=== PATIENT | male | born 1960 | race Caucasian/White ===

== ENCOUNTER 2024-04-01 13:22 | Inpatient (IN) | payer OTHER ==
[2024-04-01 14:41] VITALS: BMI 30.9
[2024-04-01] MEDS ORDERED: MAG HYDROX/AL HYDROX/SIMETH 30 ML UNIT-DOSE CUP PO PRN (15:11)
[2024-04-01] MEDS ORDERED: BENZOCAINE/MENTHOL (CHLORASEPTIC ) LOZENGE MM PRN (15:11)
[2024-04-01] MEDS ORDERED: IBUPROFEN 400 MG TABLET (FP) PO PRN (15:11)
[2024-04-01] MEDS ORDERED: NALOXONE (NARCAN) HCL 4 MG/0.1 ML SPRAY NS PRN (15:11)
[2024-04-01] MEDS ORDERED: ACETAMINOPHEN 325 MG TABLET (FP) PO PRN (15:11)
[2024-04-01] MEDS ORDERED: guaiFENesin 600 MG TABLET.ER (FP) PO PRN (15:11)
[2024-04-01] MEDS ORDERED: NICOTINE POLACRILEX 2 MG LOZENGE BC PRN (15:11)
[2024-04-01] MEDS ORDERED: NALOXONE HCL 0.4 MG/ML VIAL IM PRN (15:11)
[2024-04-01] MEDS ORDERED: LOPERAMIDE HCL 2 MG CAPSULE PO PRN (15:11)
[2024-04-01] MEDS ORDERED: BENZONATATE 200 MG CAPSULE PO PRN (15:11)
[2024-04-01] MEDS: TUBERCULIN PPD 5 TU/0.1ML SYRINGE (IN PATIENT USE ONLY) ID ONE (17:53)
[2024-04-01] MEDS ORDERED: TUBERCULIN PPD 5 TU/0.1ML SYRINGE (IN PATIENT USE ONLY) ID ONE (19:12)
[2024-04-01 19:29] LABS: PH,URINE 5.5 (5.0-8.0); URINE APPEARANCE CLEAR; URINE BILIRUBIN NEGATIVE (NEGATIVE); URINE COLOR YELLOW; URINE GLUCOSE (UA) NEGATIVE (NEGATIVE); URINE KETONE TRACE (NEGATIVE); URINE LEUK ESTERASE NEGATIVE (NEGATIVE); URINE NITRITE NEGATIVE (NEGATIVE); URINE PROTEIN NEGATIVE (NEGATIVE)
[2024-04-01] MEDS: MELATONIN 5 MG TABLETS PO SCH (22:22)
[2024-04-01] MEDS: THIAMINE 100 MG TABLET PO SCH (22:22)
[2024-04-02] MEDS: hydrOXYzine PAMOATE 25 MG CAPSULE (FP) PO PRN (01:35)
[2024-04-02] MEDS: IBUPROFEN 600 MG TABLET (FP) PO PRN (06:01)
[2024-04-02] MEDS: methaDONE HCL 40 MG DISPERSABLE TABLET PO SCH (08:05)
[2024-04-02] MEDS: amLODIPine BESYLATE 5 MG TABLET (FP) PO SCH (09:29)
[2024-04-02] MEDS: PRENATAL VITAMINS W/ FOLIC ACID TABLET (FP) PO SCH (09:29)
[2024-04-02] MEDS: NICOTINE POLACRILEX 2 MG GUM BUC PRN (09:31)
[2024-04-02] MEDS: ARIPiprazole 10 MG TABLET PO SCH (10:25)
[2024-04-02 12:21] LABS: HEMOGLOBIN 13.7 GM/dL (11.7-16.9); MCH 29.1 pg (25.7-33.7); MCHC 34.3 g/dl (32.0-35.9); MEAN CELL VOLUME 84.8 fl (80-96); MEAN PLT VOLUME 12.9 fl (7.5-11.1); PLATELET COUNT 157 10^3/uL (134-434); RBC 4.71 M/mm3 (4.00-5.60); RDW 14.4 % (11.9-15.9); WHITE BLOOD COUNT 8.5 K/mm3 (4.0-10.0)
[2024-04-02 12:26] LABS: POTASSIUM 3.6 mmol/L (3.5-5.1)
[2024-04-02 12:28] LABS: CALCIUM 9.2 mg/dL (8.5-10.1)
[2024-04-02 12:29] LABS: ALBUMIN 3.6 g/dl (3.4-5.0); BLOOD UREA NITROGEN 8.8 mg/dL (7-18)
[2024-04-02 12:32] LABS: CREATININE 1.1 mg/dL (0.55-1.3)
[2024-04-02 12:33] LABS: BILIRUBIN,TOTAL 0.8 mg/dL (0.2-1); TOT PROT 6.4 g/dl (6.4-8.2)
[2024-04-02 13:24] LABS: SYPHILIS W/ RPR CONF REACTIVE (NONREACTIVE)
[2024-04-02] MEDS: METHOCARBAMOL 500 MG TABLET PO ONE (16:42)
[2024-04-02] MEDS: METHOCARBAMOL 500 MG TABLET PO SCH (21:42)
[2024-04-02] MEDS: MELATONIN 5 MG TABLETS PO SCH (21:43)
[2024-04-04] MEDS: methaDONE HCL 10 MG TABLET PO ONE (16:45)
[2024-04-05] MEDS ORDERED: methaDONE HCL 40 MG DISPERSABLE TABLET PO SCH (06:00)
[2024-04-05] MEDS: methaDONE 80 MG, methaDONE 10 MG PO SCH (06:02)
[2024-04-05] MEDS: amLODIPine BESYLATE 5 MG TABLET (FP) PO SCH (09:42)
[2024-04-08] MEDS: amLODIPine BESYLATE 10 MG TABLET (FP) PO SCH (09:51)
[2024-04-10] MEDS: MAGNESIUM HYDROX 2400MG/30ML ORAL SUSPENSION 30 ML CUP PO PRN (06:13)
[2024-04-10] MEDS: BACLOFEN 10 MG TABLET (FP) PO SCH (13:03)
[2024-04-11] MEDS: NICOTINE 7 MG/24 HOURS TOPICAL PATCH TD PRN (09:53)
[2024-04-14] MEDS: POLYETHYLENE GLYCOL (HEALTHYLAX) 3350 17 GM PACKET PO PRN (13:04)
[2024-04-15 08:54] VITALS: BP 142/78; PULSE 57; RESP 17; TEMP 98
== END 2024-04-15 09:11 | disposition home or self-care (01) | DRG 772 ==
LOC: YASAS 13:22 → Y3NR 15:44 → Y3E 04-03 10:57
PROVIDERS: ADMIT Allergy & Immunology; ATTEND Psychiatry & Neurology Pain Medicine
PROC: HZ42ZZZ Group Counseling for Substance Abuse Treatment, Cognitive-Behavioral (ICD-10-PCS; principal; 2024-04-01)
DX: F11.20 Opioid dependence, uncomplicated (principal); F14.20 Cocaine dependence, uncomplicated; F10.20 Alcohol dependence, uncomplicated; F17.210 Nicotine dependence, cigarettes, uncomplicated; F31.81 Bipolar II disorder; G47.00 Insomnia, unspecified; I10 Essential (primary) hypertension
CPT/HCPCS: 36415; 80053; 80305; 80307; 81003; 85027; 86593; 86780; 86803; 87811; 93005; 93010; J0475